=== PATIENT | female | born 1995 | race Hispanic/Latino ===

== ENCOUNTER 2017-08-24 23:20 | Emergency (ER) | payer OTHER ==
[2017-08-25] MEDS ORDERED: Dexamethasone 10 MG/ML VIAL ONE (00:09)
[2017-08-25] MEDS ORDERED: Acetaminophen/Codeine 30-300mg Tablet ONE (00:09)
== END 2017-08-25 01:25 | disposition home or self-care (01) ==
LOC: SCSER 23:20
DX: J20.9 Acute bronchitis, unspecified (principal); J11.1 Influenza due to unidentified influenza virus with other respiratory manifestations
CPT/HCPCS: 96372; J1100

== ENCOUNTER 2017-09-19 22:09 | Emergency (ER) | payer OTHER ==
[2017-09-20 00:38] LABS: Bilirubin Negative (Negative); Blood, Urine Moderate (Negative); Glucose, Urine (Dipstick) Negative (Negative); Ketone, Urine Negative (Negative); Nitrite Positive (Negative); Protein, Urine (Dipstick) Negative (Neg-Trace)
[2017-09-20 00:39] LABS: Bacteria/HPF 4+ HPF (None Seen); Hyaline Casts/LPF 0-3 HYALINE CAST LPF (0-3 Hyaline); Squamous Epithelial 0-3 HPF (0-3); WBC/HPF 21-50 HPF (0-3)
[2017-09-20 00:47] LABS: ALT (SGPT) 22 U/L (8-55); AST (SGOT) 16 U/L (5-34); Alkaline Phosphatase 74 U/L (40-150); Anion Gap 13 mmol/L (10-20); BUN (Urea Nitrogen) 11 mg/dL (7.0-18.7); Band 5 % (5-11); Calc. Creatinine Clearance 0 mL/min (70-130); Calcium 9.2 mg/dL (7.8-10.44); Carbon Dioxide 24 mmol/L (22-29); Chloride 103 mmol/L (98-107); Estimated GFR-MDRD Greater than 90; Hematocrit 35.8 % (36.0-47.0); Lipase 15 U/L (8-78); Mean Platelet Volume 7.3 fL (7.4-10.4); Neutrophil 65 % (42-75); Protein, Total 6.9 g/dL (6.0-8.3); Red Blood Cell (RBC) Count 3.92 mill/uL (4.20-5.40); White Blood Cell (WBC) Count 9.3 thou/uL (4.8-10.8)
[2017-09-20] MEDS ORDERED: Ketorolac Tromethamine 30 MG/ML VIAL ONE (00:49)
[2017-09-20] MEDS ORDERED: Dexamethasone 4 mg/ml Vial ONE (00:49)
[2017-09-20] MEDS ORDERED: Metoclopramide HCl 10 MG/2 ML VIAL ONE (00:49)
[2017-09-20] MEDS ORDERED: Nitrofurantoin Monohyd/M-Cryst 100 MG CAP PO SCH (01:00)
--- NOTE | 2017-09-20 07:43 | CT ---
PRELIMINARY REPORT/[facility]/EMERGENCY AFTER HOURS PROCEDURE: EXAM: CT Head Without Intravenous Contrast CLINICAL HISTORY: 22 years old, female; Pain; Headache; Headache not specified; Patient HX: Er 24; F 22 presents to ed with REID, states that she was seen at earlier this am, was dx with uti and rx'd abx. Pt states that REID began on monday. Denies any photophobia, no daily medications. TECHNIQUE: Axial computed tomography images of the head/brain without intravenous contrast. COMPARISON: No relevant prior studies available. FINDINGS: No definite acute skull fracture. Included paranasal sinuses are essentially clear. No acute intracranial hemorrhage or mass effect. Ventricle size is normal for age. No definite acute infarct by CT. IMPRESSION: No acute intracranial bleed or mass effect. Thank you for allowing us to participate in the care of your patient. Dictated and Authenticated by: Kiran Schwartz MD 09/20/2017 1:30 AM Central Time ([place] & [place]) FINAL REPORT CT BRAIN WITHOUT CONTRAST: I agree with the preliminary report given by Dr. Kiran Schwartz of [facility]. POS: OFF
== END 2017-09-20 01:55 | disposition home or self-care (01) ==
LOC: ERS 22:09
DX: R51 Headache (principal); N39.0 Urinary tract infection, site not specified
CPT/HCPCS: 36415; 70450; 80053; 81003; 81015; 83690; 84703; 85025; 87040; 87081; 87086; 87430; 96365; 96375; J1100; J1885; J2765

== ENCOUNTER 2017-11-09 14:44 | Emergency (ER) | payer OTHER ==
[2017-11-09] MEDS ORDERED: Ondansetron ODT 4 MG TAB ONE (14:52)
[2017-11-09 15:05] LABS: Bilirubin Negative (Negative); Blood, Urine Small (Negative); Clarity CLOUDY (Clear); Glucose, Urine (Dipstick) Negative (Negative); Leukocyte Negative (Negative); Nitrite Negative (Negative); Protein, Urine (Dipstick) Trace mg/dL (Neg-Trace); Specific Gravity, Urine 1.034 (1.002-1.036); Urobilinogen 0.2 mg/dL (0.2-1.0)
[2017-11-09 15:06] LABS: Bacteria/HPF 2+ HPF (None Seen); Hyaline Casts/LPF 7-10 HYALINE CAST LPF (0-3 Hyaline); Pregnancy Test - Urine (BHCG) Negative (Negative); Pregu Control Background? CLEAR/WHITE (CLR/WHITE); Pregu Control Bar Appear? YES (CONTROL BAR); Specific Gravity 1.034 (1.002-1.036)
[2017-11-09 15:44] LABS: BHCG - Serum Negative (NEGATIVE); Pregs Control Background? CLEAR/WHITE (CLR/WHITE); Pregs Control Bar Appear? YES (CONTROL BAR)
[2017-11-09] MEDS ORDERED: Ondansetron HCl/PF 4 MG/2 ML Vial ONE (16:35)
[2017-11-09] MEDS ORDERED: Ketorolac Tromethamine 30 MG/ML VIAL ONE (16:35)
--- NOTE | 2017-11-09 17:33 | CT ---
CT ABDOMEN AND PELVIS WITHOUT CONTRAST: 11/09/17 HISTORY: Left sided flank pain, kidney stones, nausea and vomiting. FINDINGS: The lung bases are clear. No free air is seen in the abdomen or pelvis. No calcified gallstones are s een. Absence of oral and IV contrast reduces the sensitivity of the exam, particularly for evaluation of s olid and bowel. There are tiny calculi in the kidneys on either side. There is left sided hydroureteronephrosis. No c alculi are seen in the ureters or urinary bladder. There is left perinephric fluid and inflammatory c hange. A normal appearing appendix is present. There is an IUD in place. A tiny amount of free fluid is seen in the pelvis. No acute osseous abnormality is seen. IMPRESSION: 1. Bilateral tiny renal calculi. 2. Left sided hydroureteronephrosis and perinephric inflammatory changes likely due to recent pa ssage of calculus. UA should be performed to exclude UTI. POS: NISHANT
== END 2017-11-09 17:50 | disposition home or self-care (01) ==
LOC: ERS 14:44
DX: N13.2 Hydronephrosis with renal and ureteral calculous obstruction (principal)
CPT/HCPCS: 36415; 74176; 81003; 81015; 81025; 84703; 96361; 96374; 96375; J1885; J2405; Q0162